=== PATIENT | male | born 1985 | race African-American/Black ===

== ENCOUNTER → 2019-12-02 | Outpatient (CLI) | payer OTHER ==
--- NOTE | 2019-12-02 15:34 | KCIC ---
MR of the left knee HISTORY: Left knee pain for years, after an injury. TECHNIQUE: Routine multiplanar sequences are obtained. FINDINGS: No evidence of medial meniscal tear. No evidence of lateral meniscal tear. Anterior and posterior cruciate ligaments are intact. Medial collateral ligament intact. Iliotibial band unremarkable. Fibular collateral ligament, biceps femoris tendon and popliteus tendon are intact. Extensor mechanism is intact. Bipartite patellar variant is noted. There is marrow edema along the margins, as well as mild degenerative spurring. No evidence of acute articular cartilage defect. Acute subchondral marrow edema at the posterior medial tibial plateau. IMPRESSION: 1. Acute subchondral marrow contusion/edema at the posterior medial tibial plateau. No evidence of displaced fracture. 2. Bipartite superolateral patellar variant. Marrow edema as well as mild spurring about the margins suggest acute and/or chronic instability or stress across the synchondrosis. Electronically signed by: Ajith Olson MD (12/02/2019 3:31 PM) [id number]
== END | disposition home or self-care (01) ==
LOC: KCIC MRI 14:13
PROVIDERS: ATTEND Nurse Practitioner Family
DX: M25.562 Pain in left knee (principal)
CPT/HCPCS: 73721